=== PATIENT | female | born 1985 | race American Indian/Alaskan Native ===

== ENCOUNTER 2017-05-06 10:12 | Outpatient (CLI) | payer OTHER ==
--- NOTE | 2017-05-06 15:15 | XRay Report ---
XRAY RIGHT HAND RIGHT VIEWS: 05/06/17 10:12:00 CLINICAL: Right hand pain. FINDINGS: Moderate periarticular osteopenia but normal joint spaces. No erosions. No fracture or dislocation. There is questionable soft tissue swelling of the digits but this could best be assessed clinically. The soft tissue air or firm body. IMPRESSION: Periarticular osteopenia but otherwise normal bones and joints. Questionable soft tissue swelling.
== END 2017-05-06 10:13 | disposition home or self-care (01) ==
LOC: SPVIMAG 10:12
PROVIDERS: ATTEND Orthopaedic Surgery Sports Medicine
DX: M85.841 Other specified disorders of bone density and structure, right hand (principal)